=== PATIENT | female | born 1940 | race Caucasian/White ===

== ENCOUNTER → 2020-10-23 | Outpatient (CLI) | payer MEDICARE | END | disposition home or self-care (01) | LOC: RAH 08:10 | PROVIDERS: ATTEND Neurological Surgery | DX: M48.061 Spinal stenosis, lumbar region without neurogenic claudication (principal); M43.16 Spondylolisthesis, lumbar region | CPT/HCPCS: 72148 ==

== ENCOUNTER 2020-12-07 11:00 | Inpatient (IN) | payer MEDICARE ==
[~2020-12-07] VITALS: Ht 167.6 cm; Wt 76.5 kg
[2020-12-07 11:31] LABS: BASOPHILS % (AUTO) 0.6 % (0.0-5.0); EOSINOPHILS % (AUTO) 0.6 % (0.0-8.0); HEMATOCRIT 35.4 % (36-48); MEAN CORPUSCULAR HGB CONC 29.9 g/dL (32.0-36.0); MEAN CORPUSCULAR VOLUME 93.4 fL (79-99); MONOCYTES % (AUTO) 10.1 % (3.0-13.0); NEUTROPHILS % (AUTO) 78.7 % (40.0-77.0); PLATELET COUNT (AUTO) 347 K/uL (130-400); RED BLOOD CELL COUNT(AUTO) 3.79 MIL/uL (4.00-5.50); RED CELL DISTRIBUTION WIDTH 19.7 % (11.0-15.5); WHITE BLOOD COUNT (AUTO) 10.8 K/uL (4.8-10.8)
[2020-12-08 15:22] VITALS: BP 121/55
[2020-12-12] MEDS ORDERED: NIFE-39 PO (10:33)
[2020-12-12] MEDS ORDERED: CARV25TA PO (10:33)
[2020-12-12] MEDS ORDERED: GLIM1TAB18 PO (10:33)
[2020-12-12] MEDS ORDERED: HYDR-3422 PO (10:33)
[2020-12-12] MEDS ORDERED: FURO20TA6 PO (10:33)
[2020-12-13] VITALS (17 sets, daily range): BP systolic 95–138; BP diastolic 41–62
[2020-12-13] MEDS ORDERED: 0.9%NACL 1000ML 1,000 ML IV ONE (06:31)
[2020-12-13] MEDS: CEFAZOLIN SODIUM 1 GM VIAL ONE ×2 (06:41→07:50)
[2020-12-13] MEDS ORDERED: THROMBIN-JMI 20000 UNIT KIT TP ONE (06:44)
[2020-12-13] MEDS ORDERED: CEFAZOLIN SODIUM 1 GM VIAL ONE ×3 (06:44→12:40)
[2020-12-13] MEDS ORDERED: MORPHINE PF 100MG/10ML AMP IV ONE (06:44)
[2020-12-13 06:52] LABS: CREATININE 3.1 mg/dL (0.5-1.5); POTASSIUM 3.8 mmol/L (3.5-5.1)
[2020-12-13] MEDS ORDERED: SUCCINYLCHOLINE CHLORIDE 20 MG/ML 10 ML VIAL ONE (06:52)
[2020-12-13] MEDS ORDERED: LIDOCAINE PF 100MG/5ML (2%) SYRINGE 5ML ONE (06:52)
[2020-12-13] MEDS ORDERED: DEXAMETHASONE SOD PHOSPHATE 10MG/ML 1ML VIAL ONE ×2 (06:54→08:15)
[2020-12-13] MEDS ORDERED: PROPOFOL 10 MG/ML 20ML VIAL IV ONE (06:55)
[2020-12-13] MEDS ORDERED: GLYCOPYRROLATE 1 MG/5 ML SYRINGE ONE (06:55)
[2020-12-13] MEDS ORDERED: FENTANYL CITRATE PF 50 MCG/1 ML 2ML VIAL ONE ×2 (06:55→12:07)
[2020-12-13] MEDS ORDERED: ROCURONIUM 10MG/1ML SYR 10 MG/ML ML ONE (06:55)
[2020-12-13] MEDS ORDERED: ONDANSETRON 4MG INJ ONE (06:55)
[2020-12-13] MEDS ORDERED: MIDAZOLAM HCL 1 MG/ML 2ML VIAL ONE (06:55)
[2020-12-13] MEDS ORDERED: NEOSTIGMINE 5MG/5ML SYR IV ONE (06:55)
[2020-12-13] MEDS: BUPIVACAINE/EPI/PF 0.25% 30ML VIAL IJ SCH ×2 (07:15→08:12)
[2020-12-13] MEDS ORDERED: KETAMINE 50MG/ML SYRINGE 50 MG/ML DISP.SYRIN IV ONE (07:29)
[2020-12-13] MEDS ORDERED: ARTIFICIAL TEARS 3.5 GM OINTMENT ONE (08:54)
[2020-12-13] MEDS ORDERED: PHENYLEPHRINE HCL 10 MG/ML 1ML VIAL IV ONE (08:54)
[2020-12-13] MEDS ORDERED: GENTAMICIN SULFATE 80 MG/2 ML VIAL ONE (08:57)
[2020-12-13] MEDS ORDERED: ALBUMIN (HUMAN) 5% 250 ML IV ONE (12:39)
[2020-12-13] MEDS ORDERED: PROMETHAZINE HCL 25 MG/ML 1ML AMPULE IM PRN (14:45)
[2020-12-13] MEDS: CEFAZOLIN SODIUM 1 GM VIAL IVP SCH ×2 (14:45→21:04)
[2020-12-13] MEDS: DEXAMETHASONE SOD PHOSPHATE 4 MG/ML 1ML VIAL IVP SCH ×2 (14:45→21:02)
[2020-12-13] MEDS ORDERED: MORPHINE 2 MG SYG IVP PRN (14:45)
[2020-12-13] MEDS ORDERED: 0.9%NACL 10ML VIAL IVP PRN (14:45)
[2020-12-13] MEDS: LACTATED RINGERS 1000ML 1,000 ML IV SCH (14:45)
[2020-12-13] MEDS: GLIMEPIRIDE 0.5 MG PO SCH (21:00)
[2020-12-13] MEDS: CARVEDILOL 25 MG TABLET PO SCH (21:01)
[2020-12-13] MEDS: FUROSEMIDE 20 MG TABLET PO SCH (21:01)
[2020-12-13] MEDS: NIFEDIPINE ER 30 MG TAB PO SCH (21:02)
[2020-12-13] MEDS: INSULIN HUMULIN R 100 UNIT/ML 3ML SQ SCH (21:04)
[2020-12-13] MEDS: HYDROCODONE/ACETAMINOPHEN 5/325 MG TAB PO PRN (21:05)
[2020-12-14 04:00] VITALS: BP 110/46
[2020-12-14] MEDS: LACTATED RINGERS 1000ML 1,000 ML IV SCH ×2 (04:05→08:52)
[2020-12-14 04:12] LABS: HEMATOCRIT 30.4 % (36-48); MEAN CORPUSCULAR HEMOGLOBIN 27.4 pg (27.0-33.0); MEAN CORPUSCULAR HGB CONC 29.6 g/dL (32.0-36.0); MEAN CORPUSCULAR VOLUME 92.4 fL (79-99); RED BLOOD CELL COUNT(AUTO) 3.29 MIL/uL (4.00-5.50); RED CELL DISTRIBUTION WIDTH 19.6 % (11.0-15.5); WHITE BLOOD COUNT (AUTO) 14.2 K/uL (4.8-10.8)
[2020-12-14] MEDS: DEXAMETHASONE SOD PHOSPHATE 4 MG/ML 1ML VIAL IVP SCH ×4 (04:34→20:46)
[2020-12-14 04:48] LABS: ALBUMIN 2.4 g/dL (3.5-5.0); BILIRUBIN,TOTAL 0.2 mg/dL (0.2-1.0); CREATININE 3.8 mg/dL (0.5-1.5); PHOSPHORUS 4.6 mg/dL (2.5-4.9); POTASSIUM 5.3 mmol/L (3.5-5.1); TOTAL PROTEIN, SERUM 6.5 g/dL (6.0-8.3)
[2020-12-14] MEDS: CEFAZOLIN SODIUM 1 GM VIAL IVP SCH ×2 (05:48→08:51)
[2020-12-14] MEDS: INSULIN HUMULIN R 100 UNIT/ML 3ML SQ SCH ×4 (06:58→21:31)
[2020-12-14 08:02] VITALS: BP 122/55
[2020-12-14] MEDS: GLIMEPIRIDE 0.5 MG PO SCH ×2 (09:00→21:00)
[2020-12-14] MEDS: FUROSEMIDE 20 MG TABLET PO SCH ×2 (09:00→20:46)
[2020-12-14] MEDS: CARVEDILOL 25 MG TABLET PO SCH ×2 (09:00→20:45)
[2020-12-14] MEDS: NIFEDIPINE ER 30 MG TAB PO SCH ×2 (09:00→20:45)
[2020-12-14 11:10] VITALS: BP 120/60
[2020-12-14] MEDS: HYDROCODONE/ACETAMINOPHEN 5/325 MG TAB PO PRN ×2 (12:33→21:11)
[2020-12-14] MEDS ORDERED: HEPARIN 5,000 UNIT VIAL ONE (12:51)
[2020-12-14 16:23] VITALS: BP 127/50
[2020-12-14 19:00] VITALS: BP 139/65
[2020-12-14 23:47] VITALS: BP 158/81
[2020-12-15] MEDS: DEXAMETHASONE SOD PHOSPHATE 4 MG/ML 1ML VIAL IVP SCH ×4 (03:18→20:26)
[2020-12-15 04:00] VITALS: BP 113/52
[2020-12-15 04:07] LABS: HEMATOCRIT 29.7 % (36-48); MEAN CORPUSCULAR HEMOGLOBIN 28.4 pg (27.0-33.0); MEAN CORPUSCULAR HGB CONC 30.6 g/dL (32.0-36.0); MEAN CORPUSCULAR VOLUME 92.8 fL (79-99); PLATELET COUNT (AUTO) 310 K/uL (130-400); RED CELL DISTRIBUTION WIDTH 19.9 % (11.0-15.5); WHITE BLOOD COUNT (AUTO) 15.6 K/uL (4.8-10.8)
[2020-12-15 04:14] LABS: CREATININE 3.4 mg/dL (0.5-1.5); POTASSIUM 4.5 mmol/L (3.5-5.1)
[2020-12-15 04:21] LABS: BAND NEUTROPHILS % (MANUAL) 1 % (0-2); LYMPHOCYTES % (MANUAL) 7 % (22-44); MAN.DIFF COMMENT-IMPRESSION MANUAL DIFFERENTIAL; MONOCYTES % (MANUAL) 2 % (2-9); SEGMENTED NEUTROPHILS % 90 % (40-70)
[2020-12-15 07:16] LABS: HEPATITIS B CORE IGM Negative (Negative); HEPATITIS Bs ANTIGEN SCREEN P Negative (Negative)
[2020-12-15] MEDS: INSULIN HUMULIN R 100 UNIT/ML 3ML SQ SCH ×5 (07:30→21:36)
[2020-12-15 08:00] VITALS: BP 130/62
[2020-12-15] MEDS: GLIMEPIRIDE 0.5 MG PO SCH ×3 (09:00→20:30)
[2020-12-15] MEDS: NIFEDIPINE ER 30 MG TAB PO SCH ×2 (09:32→20:27)
[2020-12-15] MEDS: HYDROCODONE/ACETAMINOPHEN 5/325 MG TAB PO PRN ×3 (09:32→21:42)
[2020-12-15] MEDS: CARVEDILOL 25 MG TABLET PO SCH ×2 (09:33→20:27)
[2020-12-15] MEDS: FUROSEMIDE 20 MG TABLET PO SCH ×2 (09:33→20:27)
[2020-12-15 11:57] VITALS: BP 112/56
[2020-12-15 16:00] VITALS: BP 120/56
[2020-12-15] MEDS ORDERED: CALCIUM CARB 500MG CHEW TAB ONE (20:23)
[2020-12-15 20:25] VITALS: BP 110/50
[2020-12-16 00:17] VITALS: BP 113/69
[2020-12-16] MEDS: DEXAMETHASONE SOD PHOSPHATE 4 MG/ML 1ML VIAL IVP SCH ×4 (02:29→21:03)
[2020-12-16] MEDS: HYDROCODONE/ACETAMINOPHEN 5/325 MG TAB PO PRN ×3 (02:31→21:07)
[2020-12-16 04:00] VITALS: BP 113/57
[2020-12-16 05:32] LABS: HEMATOCRIT 29.9 % (36-48); MEAN CORPUSCULAR HEMOGLOBIN 27.6 pg (27.0-33.0); MEAN CORPUSCULAR HGB CONC 30.1 g/dL (32.0-36.0); MEAN CORPUSCULAR VOLUME 91.7 fL (79-99); PLATELET COUNT (AUTO) 304 K/uL (130-400); RED BLOOD CELL COUNT(AUTO) 3.26 MIL/uL (4.00-5.50); RED CELL DISTRIBUTION WIDTH 19.9 % (11.0-15.5); WHITE BLOOD COUNT (AUTO) 14.5 K/uL (4.8-10.8)
[2020-12-16 05:43] LABS: CREATININE 4.2 mg/dL (0.5-1.5); POTASSIUM 4.4 mmol/L (3.5-5.1)
[2020-12-16 05:45] LABS: BAND NEUTROPHILS % (MANUAL) 1 % (0-2); LYMPHOCYTES % (MANUAL) 3 % (22-44); MAN.DIFF COMMENT-IMPRESSION MANUAL DIFFERENTIAL; MONOCYTES % (MANUAL) 10 % (2-9); SEGMENTED NEUTROPHILS % 86 % (40-70)
[2020-12-16] MEDS: INSULIN HUMULIN R 100 UNIT/ML 3ML SQ SCH ×4 (06:16→21:06)
[2020-12-16] MEDS ORDERED: CALCIUM CARB 500MG CHEW TAB PO PRN ×2 (07:00→07:15)
[2020-12-16 08:00] VITALS: BP 111/49
[2020-12-16] MEDS: FUROSEMIDE 20 MG TABLET PO SCH ×2 (08:25→21:04)
[2020-12-16] MEDS: NIFEDIPINE ER 30 MG TAB PO SCH ×2 (08:25→21:04)
[2020-12-16] MEDS: CARVEDILOL 25 MG TABLET PO SCH ×2 (08:25→21:08)
[2020-12-16] MEDS: GLIMEPIRIDE 0.5 MG PO SCH ×3 (08:31→22:35)
[2020-12-16] MEDS: LACTULOSE 20 GM/30 ML UDCUP PO PRN (10:11)
[2020-12-16 12:00] VITALS: BP 116/62
[2020-12-16] MEDS ORDERED: HEPARIN 5,000 UNIT VIAL ONE (12:57)
[2020-12-16 16:00] VITALS: BP 117/49
[2020-12-16 20:00] VITALS: BP 139/66
[2020-12-17] VITALS: BP 145/62
[2020-12-17] MEDS: DEXAMETHASONE SOD PHOSPHATE 4 MG/ML 1ML VIAL IVP SCH ×4 (02:07→20:26)
[2020-12-17] MEDS: INSULIN HUMULIN R 100 UNIT/ML 3ML SQ SCH ×4 (06:13→20:27)
[2020-12-17 08:07] VITALS: BP 117/53
[2020-12-17] MEDS: NIFEDIPINE ER 30 MG TAB PO SCH ×2 (08:24→20:26)
[2020-12-17] MEDS: CARVEDILOL 25 MG TABLET PO SCH ×2 (08:25→20:28)
[2020-12-17] MEDS: FUROSEMIDE 20 MG TABLET PO SCH ×2 (08:25→20:26)
[2020-12-17] MEDS: GLIMEPIRIDE 0.5 MG PO SCH ×2 (08:31→20:27)
[2020-12-17] MEDS: HYDROCODONE/ACETAMINOPHEN 5/325 MG TAB PO PRN ×2 (14:24→20:26)
[2020-12-17 15:01] VITALS: BP 95/62
[2020-12-17 16:47] VITALS: BP 119/50
[2020-12-17 20:00] VITALS: BP 115/57
[2020-12-18] VITALS: BP 122/59
[2020-12-18] MEDS: DEXAMETHASONE SOD PHOSPHATE 4 MG/ML 1ML VIAL IVP SCH ×3 (02:49→14:45)
[2020-12-18 04:37] LABS: BASOPHILS % (AUTO) 0.4 % (0.0-5.0); HEMATOCRIT 28.2 % (36-48); LYMPHOCYTES % (AUTO) 4.4 % (21.0-51.0); MEAN CORPUSCULAR HEMOGLOBIN 28.6 pg (27.0-33.0); MEAN CORPUSCULAR HGB CONC 31.6 g/dL (32.0-36.0); MEAN CORPUSCULAR VOLUME 90.7 fL (79-99); NEUTROPHILS % (AUTO) 82.6 % (40.0-77.0); PLATELET COUNT (AUTO) 307 K/uL (130-400); RED BLOOD CELL COUNT(AUTO) 3.11 MIL/uL (4.00-5.50); RED CELL DISTRIBUTION WIDTH 19.9 % (11.0-15.5); WHITE BLOOD COUNT (AUTO) 13.3 K/uL (4.8-10.8)
[2020-12-18 05:24] LABS: CREATININE 3.6 mg/dL (0.5-1.5); PHOSPHORUS 3.7 mg/dL (2.5-4.9); POTASSIUM 4.3 mmol/L (3.5-5.1)
[2020-12-18] MEDS: INSULIN HUMULIN R 100 UNIT/ML 3ML SQ SCH ×4 (05:26→19:54)
[2020-12-18 07:00] VITALS: BP 127/59
[2020-12-18] MEDS: CARVEDILOL 25 MG TABLET PO SCH ×2 (08:14→19:53)
[2020-12-18] MEDS: GLIMEPIRIDE 0.5 MG PO SCH ×2 (08:14→19:54)
[2020-12-18] MEDS: NIFEDIPINE ER 30 MG TAB PO SCH ×2 (08:15→19:52)
[2020-12-18] MEDS: FUROSEMIDE 20 MG TABLET PO SCH ×2 (08:15→19:53)
[2020-12-18] MEDS: LACTULOSE 20 GM/30 ML UDCUP PO PRN (09:45)
[2020-12-18 11:30] VITALS: BP 122/70
[2020-12-18] MEDS: HYDROCODONE/ACETAMINOPHEN 5/325 MG TAB PO PRN (12:38)
[2020-12-18 16:00] VITALS: BP 120/55
[2020-12-18 19:50] VITALS: BP 132/55
[2020-12-18] MEDS: HYDROXYZINE 25 MG TABLET PO PRN (19:52)
[2020-12-18 23:30] VITALS: BP 146/63
[2020-12-19 03:47] LABS: HEMATOCRIT 30.8 % (36-48); MEAN CORPUSCULAR HEMOGLOBIN 27.5 pg (27.0-33.0); MEAN CORPUSCULAR HGB CONC 29.9 g/dL (32.0-36.0); MEAN CORPUSCULAR VOLUME 91.9 fL (79-99); PLATELET COUNT (AUTO) 341 K/uL (130-400); RED BLOOD CELL COUNT(AUTO) 3.35 MIL/uL (4.00-5.50); RED CELL DISTRIBUTION WIDTH 19.9 % (11.0-15.5); WHITE BLOOD COUNT (AUTO) 13.7 K/uL (4.8-10.8)
[2020-12-19 03:52] VITALS: BP 141/66
[2020-12-19 04:00] LABS: CREATININE 4.2 mg/dL (0.5-1.5); LYMPHOCYTES % (MANUAL) 9 % (22-44); MAN.DIFF COMMENT-IMPRESSION MANUAL DIFFERENTIAL; MONOCYTES % (MANUAL) 3 % (2-9); PLATELET MORPHOLOGY COMMENT ADEQUATE; POTASSIUM 4.7 mmol/L (3.5-5.1); SEGMENTED NEUTROPHILS % 88 % (40-70)
[2020-12-19 07:00] VITALS: BP 129/61
[2020-12-19] MEDS: INSULIN HUMULIN R 100 UNIT/ML 3ML SQ SCH ×4 (07:30→20:51)
[2020-12-19] MEDS: CARVEDILOL 25 MG TABLET PO SCH ×2 (09:00→20:50)
[2020-12-19] MEDS: NIFEDIPINE ER 30 MG TAB PO SCH ×2 (09:00→20:49)
[2020-12-19] MEDS: FUROSEMIDE 20 MG TABLET PO SCH ×2 (09:00→20:50)
[2020-12-19] MEDS: GLIMEPIRIDE 0.5 MG PO SCH (09:00)
[2020-12-19] MEDS: HYDROCODONE/ACETAMINOPHEN 5/325 MG TAB PO PRN ×3 (10:44→20:51)
[2020-12-19 11:30] VITALS: BP 126/56
[2020-12-19] MEDS ORDERED: 0.9%NACL 1000ML IV PRN (13:45)
[2020-12-19] MEDS ORDERED: HEPARIN 5,000 UNIT VIAL IJ PRN (13:45)
[2020-12-19] MEDS ORDERED: NITROGLYCERIN 0.4 MG SL TAB SL PRN (13:45)
[2020-12-19] MEDS ORDERED: LIDOCAINE HCL-MPF 1% 2ML VIAL IJ PRN (13:45)
[2020-12-19] MEDS ORDERED: 0.9%NACL 1000ML 1,000 ML IV PRN (13:45)
[2020-12-19] MEDS ORDERED: ACETAMINOPHEN 325 MG TAB PO PRN (13:45)
[2020-12-19 13:58] LABS: HEMOGLOBIN A1C 6.1 % (4.0-6.0)
[2020-12-19] MEDS ORDERED: DEXTROSE 50%-WATER 50 ML DISP.SYRIN IV PRN (14:15)
[2020-12-19] MEDS ORDERED: GLUCAGON 1MG KIT 1 MG ML IM PRN (14:15)
[2020-12-19] MEDS ORDERED: EPOETIN ALFA-EPBX (ESRD) 10,000 UNIT/ML VIAL SQ SCH (14:30)
[2020-12-19 16:40] VITALS: BP 136/58
[2020-12-19 20:00] VITALS: BP 123/53
[2020-12-19] MEDS: HYDROXYZINE 25 MG TABLET PO PRN (20:49)
[2020-12-20 00:31] VITALS: BP 130/54
[2020-12-20 04:30] VITALS: BP 130/52
[2020-12-20] MEDS: INSULIN HUMULIN R 100 UNIT/ML 3ML SQ SCH ×2 (06:07→11:30)
[2020-12-20 08:00] VITALS: BP 128/45
[2020-12-20] MEDS: FUROSEMIDE 20 MG TABLET PO SCH ×2 (08:26→19:24)
[2020-12-20] MEDS: CARVEDILOL 25 MG TABLET PO SCH ×2 (08:26→19:24)
[2020-12-20] MEDS: HYDROCODONE/ACETAMINOPHEN 5/325 MG TAB PO PRN ×2 (08:26→12:11)
[2020-12-20] MEDS: NIFEDIPINE ER 30 MG TAB PO SCH ×2 (08:26→19:24)
[2020-12-20 12:00] VITALS: BP 112/45
[2020-12-20 16:00] VITALS: BP 112/51
[2020-12-20 19:24] VITALS: BP 118/60
== END 2020-12-20 19:45 | DRG 459 ==
LOC: EDSTATUS 11:00 → DAHIP 12-13 06:00 → 4BH 12-13 15:44
PROVIDERS: ADMIT Neurological Surgery; ATTEND Neurological Surgery
PROC: 0SG10K1 Fusion of 2 or more Lumbar Vertebral Joints with Nonautologous Tissue Substitute, Posterior Approach, Posterior Column, Open Approach (ICD-10-PCS; principal; 2020-12-13 08:12)
PROC: 4A11X4G Monitoring of Peripheral Nervous Electrical Activity, Intraoperative, External Approach (ICD-10-PCS; 2020-12-13 08:12)
DX: M48.061 Spinal stenosis, lumbar region without neurogenic claudication (principal); N18.6 End stage renal disease; G95.20 Unspecified cord compression; I12.0 Hypertensive chronic kidney disease with stage 5 chronic kidney disease or end stage renal disease; M43.16 Spondylolisthesis, lumbar region; Z99.2 Dependence on renal dialysis; E11.22 Type 2 diabetes mellitus with diabetic chronic kidney disease; D64.9 Anemia, unspecified; E78.5 Hyperlipidemia, unspecified; E87.5 Hyperkalemia; Z90.49 Acquired absence of other specified parts of digestive tract; Z20.822 Contact with and (suspected) exposure to COVID-19; Z96.649 Presence of unspecified artificial hip joint
CPT/HCPCS: 36415; 71045; 72110; 80048; 80051; 80053; 80074; 82948; 83036; 84100; 85025; 85027; 86704; 86708; 87340; 90935; 97039; A4344; G0378; J0330; J0690; J1100; J1580; J1644; J1815; J2001; J2250; J2274; J2370; J2405; J2704; J2710; J3010; J3490; J7030; P9045; U0003

== ENCOUNTER → 2021-01-08 | Outpatient (CLI) | payer MEDICARE ==
[~2021-01-08] MED LIST: CARV25TA PO; FURO20TA6 PO; GLIM1TAB18 PO; HYDR-3422 PO; NIFE-39 PO
== END | disposition home or self-care (01) ==
LOC: OIH 09:39
PROVIDERS: ATTEND Neurological Surgery
DX: M51.36 Other intervertebral disc degeneration, lumbar region (principal); L45 Papulosquamous disorders in diseases classified elsewhere; I71.4 Abdominal aortic aneurysm, without rupture; Z96.641 Presence of right artificial hip joint
CPT/HCPCS: 72100